=== PATIENT | male | born 1995 | race Caucasian/White ===

== ENCOUNTER 2019-12-22 23:37 | Emergency (ER) | payer MEDICAID ==
[~2019-12-22] VITALS: Ht 170.2 cm; Wt 98.4 kg
[2019-12-22 23:41] VITALS: BP 130/83
--- NOTE | 2019-12-22 23:48 | NUR ---
PT AMBULATED TO LOBBY, VSS
--- NOTE | 2019-12-22 23:50 | NUR ---
PT AMBULATED TO BED 1 AT THIS TIME
--- NOTE | 2019-12-23 00:15 | NUR ---
PT ASSESSMENT COMPLETE. FAMILY AT BEDSIDE. WILL CONTINUE TO MONITOR.
--- NOTE | 2019-12-23 00:48 | NUR ---
WOUND CARE PERFORMED, PT TOLERATED WELL. WOUND CLEANSED W/ NS, PATTED DRY, BEZENITNE APPLIED TO SKIN, STERI STRIPS APPLIED.
[2019-12-23 00:52] VITALS: BP 130/83
--- NOTE | 2019-12-23 00:52 | NUR ---
Patient discharged with v/s stable. Written and verbal after care instructions given and explained. Patient alert, oriented and verbalized understanding of instructions. Ambulatory with steady gait. All questions addressed prior to discharge. ID band removed. Patient advised to follow up with PMD. Rx of CLARITIN given. Patient educated on indication of medication including possible reaction and side effects. Opportunity to ask questions provided and answered.
== END 2019-12-23 00:52 | disposition home or self-care (01) ==
LOC: MED 23:37
DX: S61.402A Unspecified open wound of left hand, initial encounter (principal); T78.40XA Allergy, unspecified, initial encounter; J45.909 Unspecified asthma, uncomplicated; X58.XXXA Exposure to other specified factors, initial encounter; Y93.89 Activity, other specified; Y92.89 Other specified places as the place of occurrence of the external cause; Y99.8 Other external cause status
CPT/HCPCS: 99282; 99283; 99284

== ENCOUNTER 2020-01-06 14:17 | Emergency (ER) | payer MEDICAID ==
[~2020-01-06] VITALS: Ht 170.2 cm; Wt 96.7 kg
[2020-01-06 14:50] VITALS: BP 134/65
--- NOTE | 2020-01-06 15:00 | NUR ---
HEALTH INFORMATICS INSTRUCTOR ATTEMPTING TO DRAW LABS; PT REFUSING TO WAIT FOR RESULTS.
--- NOTE | 2020-01-06 16:52 | NUR ---
TO ED 07
[2020-01-06 17:17] VITALS: BP 134/65
--- NOTE | 2020-01-06 17:19 | NUR ---
24 Y/O M C/O CHEST PAIN 7 X 2 DAYS. PT STATES PAIN IS CONSTANT, BURNING PAIN. PT STATES HE HAS ACID REFLUX, WASN'T SURE IF THE PAIN IS RELATED. PT DENIES N/V. PT VSS, NS RYTHM. PT ON MONITOR, POSITIONED FOR COMFORT. NKA
--- NOTE | 2020-01-06 17:45 | NUR ---
MD AT BEDSIDE EXAMINING PATIENT.
--- NOTE | 2020-01-06 17:57 | NUR ---
PATIENT CRYSTAL. NOTIFIED.
== END 2020-01-06 17:57 | disposition left against medical advice (07) ==
LOC: MED 14:17
DX: R07.89 Other chest pain (principal); J45.909 Unspecified asthma, uncomplicated; F12.90 Cannabis use, unspecified, uncomplicated
CPT/HCPCS: 71045; 93005; 99283

== ENCOUNTER 2020-04-13 07:55 | Emergency (ER) | payer MEDICAID ==
[~2020-04-13] VITALS: Ht 170.2 cm; Wt 92.1 kg
[2020-04-13 07:59] VITALS: BP 165/105
--- NOTE | 2020-04-13 07:59 | NUR ---
25 Y/O M C/C EPIGASTRIC PAIN/VOMITING X 3 DAYS. PER PT IT HAS BEEN GETTING PROGRESSIVELY WORSE, PAIN INITIATES IN THE MORNING AND SUBSIDES THROUGHOUT THE DAY. PAIN 10/10, PRESSURE, NON RADIATING. BS NORMOACTIVE. PT PRESENTS IN DISTRESS DUE TO PAIN. NKA. HX GERD,HIATAL HERNIA, ULCER ESOPHAGUS. NO RX. NO DIARRHEA. SIDE RAIL X1. PT BIBA FROM HOME.
--- NOTE | 2020-04-13 08:09 | NUR ---
ERMD AT BEDSIDE
[2020-04-13] MEDS: NACL 0.9% 1,000 ML IV SCH (08:14)
[2020-04-13] MEDS: MORPHINE SULFATE 4 MG/ML SYR IVP ONE (08:15)
[2020-04-13] MEDS: ONDANSETRON 4 MG/2 ML VIAL IVP ONE (08:15)
--- NOTE | 2020-04-13 08:16 | NUR ---
PT RESTING IN BED, SIDE RAIL X1
[2020-04-13 08:54] LABS: BASOPHILS # (AUTO) 0.1 K/uL (0.00-0.22); EOSINOPHILS # (AUTO) 0.1 K/uL (0-0.4); EOSINOPHILS % (AUTO) 0.9 % (0.0-4.0); HEMATOCRIT 43.7 % (36-52); LYMPHOCYTES # (AUTO) 1.1 K/uL (2.0-11.5); LYMPHOCYTES % (AUTO) 11.9 % (20.5-51.1); MEAN CORPUSCULAR HEMOGLOBIN 27 pg (27-31); MEAN CORPUSCULAR HGB CONC 32 g/dL (33-37); MEAN CORPUSCULAR VOLUME 83.1 fL (80-94); MONOCYTES # (AUTO) 0.6 K/uL (0.8-1.0); MONOCYTES % (AUTO) 6.3 % (1.7-9.3); NEUTROPHILS # (AUTO) 7.1 K/uL (1.8-7.7); NEUTROPHILS % (AUTO) 79.9 % (42.2-75.2); PLATELET COUNT (AUTO) 218 K/uL (140-450); RED BLOOD CELL COUNT(AUTO) 5.26 MIL/uL (4.20-6.10); RED CELL DISTRIBUTION WIDTH 13.3 % (11.6-13.7); WHITE BLOOD COUNT (AUTO) 8.9 K/uL (4.8-10.8)
--- NOTE | 2020-04-13 09:07 | NUR ---
PT RESTING IN BED, SIDE RAIL X1
[2020-04-13 09:14] LABS: ALBUMIN 4.3 g/dL (3.4-5.0); ANION GAP 14.4 (8-16); CARBON DIOXIDE 23.4 mmol/L (21-32); CREATININE 1.2 mg/dL (0.6-1.3); POTASSIUM 3.8 mmol/L (3.5-5.1); TOTAL BILIRUBIN 0.5 mg/dL (0.0-1.0)
[2020-04-13] MEDS: LORazepam 2 MG/ML VIAL IVP ONE ×2 (10:05→12:01)
[2020-04-13] MEDS ORDERED: AMMONIA AROMATIC 1 INHL INH ONE (11:39)
--- NOTE | 2020-04-13 11:52 | NUR ---
Dr. Ro is evaluating the patient at bedside.
[2020-04-13 12:39] VITALS: BP 128/86
--- NOTE | 2020-04-13 12:39 | NUR ---
Patient discharged with v/s stable. Written and verbal after care instructions given and explained. Patient alert, oriented and verbalized understanding of instructions. Ambulatory with steady gait. All questions addressed prior to discharge. ID band removed. Patient advised to follow up with PMD. Rx of ATARAX,ZOFRAN given. Patient educated on indication of medication including possible reaction and side effects. Opportunity to ask questions provided and answered.
== END 2020-04-13 12:39 | disposition home or self-care (01) ==
LOC: MED 07:55
DX: R11.2 Nausea with vomiting, unspecified (principal); F41.9 Anxiety disorder, unspecified; J45.909 Unspecified asthma, uncomplicated; K21.9 Gastro-esophageal reflux disease without esophagitis
CPT/HCPCS: 36415; 80053; 81002; 83690; 85025; 96361; 96374; 96375; 96376; 99284; J2060; J2270; J2405; J7030

== ENCOUNTER 2020-04-17 07:46 | Emergency (ER) | payer MEDICAID ==
[~2020-04-17] VITALS: Ht 172.7 cm; Wt 92.1 kg
[2020-04-17 07:50] VITALS: BP 120/98
[2020-04-17] MEDS ORDERED: DICYCLOMINE HCL LIQUID 20 MG, ALUMINUM HYD/MAG/SIMETHICONE 30 ML, LIDOCAINE VISCOUS 2% ... PO ONE ×3 (07:50)
--- NOTE | 2020-04-17 07:51 | NUR ---
25 Y/O MALE BIBA ALS WITH C/O EPIGASTRIC PAIN X 6 DAYS. PT WAS SEEN AT [facility] FOR SAME C/O WITH DIAGNOSIS OF GERD. STATES HE ATE DINNER LAST NIGHT AND HAD INCREASED BURNING TO ESOPHAGUS WITH NAUSEA AND VOMITING. PT PRESENTS TO ER WITH 20G IV PLACED TO RT HAND AND GIVEN 4MG ZOFRAN IV PUSH IN ROUTE. RR EVEN AND UNLABORED. VSS MEDHX: GERD ALLERGIES: NKA
[2020-04-17] MEDS ORDERED: ALUMINUM HYD/MAG/SIMETHICONE 30 ML UDC ONE (07:52)
[2020-04-17] MEDS ORDERED: DICYCLOMINE HCL LIQUID 10 MG/5 ML UDC ONE (07:52)
[2020-04-17] MEDS ORDERED: LIDOCAINE VISCOUS 2% 20 ML UDC ONE (07:52)
--- NOTE | 2020-04-17 07:52 | NUR ---
DR PALAFOX AT BEDSIDE EXAMINING PT
--- NOTE | 2020-04-17 07:58 | NUR ---
WALLPAPERER AT BEDSIDE
[2020-04-17 08:05] LABS: BASOPHILS # (AUTO) 0.1 K/uL (0.00-0.22); BASOPHILS % (AUTO) 0.5 % (0.0-2.0); EOSINOPHILS # (AUTO) 0.1 K/uL (0-0.4); EOSINOPHILS % (AUTO) 0.7 % (0.0-4.0); HEMATOCRIT 47.5 % (36-52); HEMOGLOBIN 15.9 g/dL (12.0-18.0); LYMPHOCYTES # (AUTO) 1.8 K/uL (2.0-11.5); LYMPHOCYTES % (AUTO) 14.6 % (20.5-51.1); MEAN CORPUSCULAR HEMOGLOBIN 27 pg (27-31); MEAN CORPUSCULAR HGB CONC 34 g/dL (33-37); MEAN CORPUSCULAR VOLUME 80.9 fL (80-94); MONOCYTES # (AUTO) 1.2 K/uL (0.8-1.0); MONOCYTES % (AUTO) 9.9 % (1.7-9.3); NEUTROPHILS % (AUTO) 74.3 % (42.2-75.2); PLATELET COUNT (AUTO) 308 K/uL (140-450); RED BLOOD CELL COUNT(AUTO) 5.88 MIL/uL (4.20-6.10); RED CELL DISTRIBUTION WIDTH 13.2 % (11.6-13.7); WHITE BLOOD COUNT (AUTO) 12.1 K/uL (4.8-10.8)
--- NOTE | 2020-04-17 08:16 | NUR ---
PT TAKEN TO CT VIA WHEELCHAIR
[2020-04-17 08:21] LABS: ALBUMIN 4.9 g/dL (3.4-5.0); CARBON DIOXIDE 24.3 mmol/L (21-32); CREATININE 1.4 mg/dL (0.6-1.3); POTASSIUM 3.3 mmol/L (3.5-5.1); TOTAL BILIRUBIN 0.9 mg/dL (0.0-1.0)
--- NOTE | 2020-04-17 08:29 | NUR ---
PT DENIES PAIN AT THIS TIME, C/O NAUSEA. DR PALAFOX MADE AWARE
[2020-04-17] MEDS ORDERED: NACL 0.9% 1,000 ML IV ONE (08:30)
[2020-04-17] MEDS ORDERED: POTASSIUM CHLORIDE 10 MEQ TABER PO ONE (08:30)
[2020-04-17] MEDS ORDERED: ONDANSETRON 4 MG/2 ML VIAL IVP ONE (08:30)
[2020-04-17] MEDS ORDERED: LORazepam 2 MG/ML VIAL IVP ONE (08:40)
[2020-04-17] MEDS ORDERED: PROCHLORPERAZINE 10 MG/2 ML VIAL IVP ONE (08:40)
--- NOTE | 2020-04-17 09:09 | NUR ---
PT RESTING WITH EYES CLOSED, DENIES NAUESA/VOMITING AT THIS TIME. VSS. WILL CONTINUE TO MONITOR
--- NOTE | 2020-04-17 09:10 | NUR ---
PT ABLE TO TOLERATE WATER WELL. DR PALAFOX MADE AWARE
[2020-04-17 09:15] LABS: BARBITURATE, URINE NEGATIVE ng/ml (NEG <=200); BENZODIAZEPINE, URINE POSITIVE ng/mL (NEG <=200); CANNABINOID, URINE POSITIVE ng/mL (NEG <=50); COCAINE, URINE NEGATIVE ng/mL (NEG <=300); PHENCYCLIDINE SCREEN,URINE NEGATIVE ng/mL (NEG <=25)
[2020-04-17] MEDS ORDERED: PANTOPRAZOLE 40 MG INJ VIAL IVP ONE (09:15)
[2020-04-17 09:16] LABS: OPIATE, URINE POSITIVE ng/mL (NEG <=2000)
--- NOTE | 2020-04-17 10:09 | NUR ---
VISIBLE RISE AND FALL OF THE CHEST. PT AROUSABLE TO NAME. DENIES NAUSEA AT THIS TIME. STATES HE IS VERY TIRED. VSS.
--- NOTE | 2020-04-17 11:00 | NUR ---
PT AWAKE AND ALERT. ABLE TO TOLERATE FLUIDS, ABLE TO AMBULATE. VSS
[2020-04-17 11:12] VITALS: BP 124/88
--- NOTE | 2020-04-17 11:13 | NUR ---
Patient discharged with v/s stable. Written and verbal after care instructions given and explained. Patient alert, oriented and verbalized understanding of instructions. Ambulatory with steady gait. All questions addressed prior to discharge. ID band removed. Patient advised to follow up with PMD. Rx of ZOFRAN 4MG AND PRILOSEC 20MG given. Patient educated on indication of medication including possible reaction and side effects. Opportunity to ask questions provided and answered.
== END 2020-04-17 11:13 | disposition home or self-care (01) ==
LOC: MED 07:46
DX: K21.9 Gastro-esophageal reflux disease without esophagitis (principal); R11.2 Nausea with vomiting, unspecified; F41.9 Anxiety disorder, unspecified
CPT/HCPCS: 36415; 74176; 80053; 80305; 83690; 85025; 96361; 96374; 96375; 99284; C9113; G0482; J0780; J2060; J2405; J7030; 99283

== ENCOUNTER 2020-08-04 11:07 | Emergency (ER) | payer MEDICAID ==
[~2020-08-04] VITALS: Ht 177.8 cm; Wt 95.3 kg
--- NOTE | 2020-08-04 11:09 | NUR ---
Patient biba and placed in bed 7.
[2020-08-04 11:14] VITALS: BP 141/98
--- NOTE | 2020-08-04 11:23 | NUR ---
25 YO MALE BIBA CO ABD SINCE YESTERDAY. PT HAS HX OF GERD AND ULCERS. N/V/D. PMH: ANXIETY MEDS: NONE
--- NOTE | 2020-08-04 11:58 | NUR ---
URINE OBTAINED AND IN THE DIRTY UTILITY ROOM
--- NOTE | 2020-08-04 12:16 | NUR ---
Patient being evaluated by Dr. Holly at bedside.
[2020-08-04] MEDS ORDERED: PANTOPRAZOLE 40 MG INJ VIAL IVP ONE (12:20)
[2020-08-04] MEDS ORDERED: HALOPERIDOL IM 5 MG/ML VIAL IVP ONE (12:20)
[2020-08-04] MEDS ORDERED: ONDANSETRON 4 MG/2 ML VIAL IVP ONE ×2 (12:20→14:15)
[2020-08-04] MEDS ORDERED: NACL 0.9% 1,000 ML IV ONE (12:20)
[2020-08-04] MEDS ORDERED: KETOROLAC 30 MG/ML VIAL IVP ONE (12:20)
[2020-08-04 12:55] LABS: BASOPHILS % (AUTO) 0.4 % (0.0-2.0); EOSINOPHILS % (AUTO) 0.1 % (0.0-4.0); HEMATOCRIT 50.2 % (36-52); HEMOGLOBIN 16.7 g/dL (12.0-18.0); LYMPHOCYTES # (AUTO) 0.9 K/uL (2.0-11.5); MEAN CORPUSCULAR HEMOGLOBIN 28 pg (27-31); MEAN CORPUSCULAR HGB CONC 33 g/dL (33-37); MEAN CORPUSCULAR VOLUME 82.8 fL (80-94); MONOCYTES # (AUTO) 0.5 K/uL (0.8-1.0); MONOCYTES % (AUTO) 3.9 % (1.7-9.3); NEUTROPHILS # (AUTO) 11.8 K/uL (1.8-7.7); NEUTROPHILS % (AUTO) 88.6 % (42.2-75.2); PLATELET COUNT (AUTO) 285 K/uL (140-450); RED BLOOD CELL COUNT(AUTO) 6.07 MIL/uL (4.20-6.10); RED CELL DISTRIBUTION WIDTH 13.3 % (11.6-13.7); WHITE BLOOD COUNT (AUTO) 13.3 K/uL (4.8-10.8)
[2020-08-04 13:14] LABS: ALBUMIN 5.2 g/dL (3.4-5.0); ANION GAP 17.8 (8-16); CARBON DIOXIDE 20.8 mmol/L (21-32); CREATININE 1.3 mg/dL (0.6-1.3); POTASSIUM 4.6 mmol/L (3.5-5.1); TOTAL BILIRUBIN 0.6 mg/dL (0.0-1.0)
[2020-08-04] MEDS ORDERED: LORazepam 2 MG/ML VIAL IVP ONE (14:15)
--- NOTE | 2020-08-04 15:52 | NUR ---
CALLED [facility] AND GAVE REPORT TO MARK MEDINA.
[2020-08-04 16:12] VITALS: BP 151/88
--- NOTE | 2020-08-04 16:13 | NUR ---
Patient to be transferred to [facility]. Is being transferred due to . Receiving facility has accepting physician and available space. ER physician has signed transfer form. Patient or responsible green party has agreed to transfer and signed form. Patient belongings inventoried and will be sent with patient. Copy of nursing notes, lab reports, EKG, Physicians Orders and X-rays to be sent with patient. Report called to RAY at receiving facility. [facility] ambulance service has been called for transfer.
== END 2020-08-04 16:13 | disposition short-term general hospital (02) ==
LOC: MED 11:07
DX: K31.84 Gastroparesis (principal); R11.10 Vomiting, unspecified; K21.9 Gastro-esophageal reflux disease without esophagitis; F41.9 Anxiety disorder, unspecified
CPT/HCPCS: 36415; 80053; 83690; 85025; 96361; 96374; 96375; 96376; 99285; C9113; J1630; J1885; J2060; J2405; J7030